=== PATIENT | female | born 1980 | race Caucasian/White ===

== ENCOUNTER 2021-07-09 14:29 | Emergency (ER) | payer MEDICAID ==
[~2021-07-09] VITALS: Ht 162.6 cm; Wt 86.2 kg
[2021-07-09 15:02] VITALS: BP_SYST 123
--- NOTE | 2021-07-09 15:02 | NUR ---
pt. triaged, arrived with concerns about probable seizure last night, pt. has hx. of seizures and takes keppra 500mg BID, last night went to bed and woke up this morning with sores to tongue and wearing clothes that she does not remeber putting on, bed was wet with urine from incontinence and pts last memory was feeling her eyes roll to the back of her head unsure of timing
--- NOTE | 2021-07-09 16:57 | NUR ---
ER in triage examining patient.
[2021-07-09 17:35] VITALS: BP_SYST 118
--- NOTE | 2021-07-09 17:36 | NUR ---
Patient given written and verbal discharge instructions and verbalizes understanding. ER MD discussed with patient the results and treatment provided. Patient in stable condition. ID arm band removed. Rx of NONE given. Patient educated on pain management and to follow up with PMD. Pain Scale 0/10. Opportunity for questions provided and answered. Medication side effect fact sheet provided. 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
== END 2021-07-09 17:36 | disposition home or self-care (01) ==
LOC: SED 14:29
DX: R56.9 Unspecified convulsions (principal)
CPT/HCPCS: 99281

== ENCOUNTER 2021-08-07 15:39 | Emergency (ER) | payer OTHER, MEDICAID, SELFPAY ==
[~2021-08-07] VITALS: Ht 162.6 cm; Wt 90.7 kg
[2021-08-07 15:40] VITALS: BP_SYST 117
--- NOTE | 2021-08-07 15:40 | NUR ---
Patient to ER bed 8 to gown for evaluation. Side rails up. Report given to
--- NOTE | 2021-08-07 15:41 | NUR ---
ER at bedside examining patient.
[2021-08-07] MEDS ORDERED: IBUP-1969 PO (15:52)
[2021-08-07] MEDS ORDERED: CYCL10TA24 PO (15:52)
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
[2021-08-07 16:53] VITALS: BP_SYST 117
--- NOTE | 2021-08-07 16:53 | NUR ---
Patient given written and verbal discharge instructions and verbalizes understanding. ER Dr. Arenas discussed with patient the results and treatment provided. Patient in stable condition. ID arm band removed. IV catheter removed intact and dressing applied, no active bleeding. Rx of Flexeril and ibuprofen given. Patient educated on pain management and to follow up with PMD. Pain Scale 3. Opportunity for questions provided and answered. Medication side effect fact sheet provided.
== END 2021-08-07 16:53 | disposition home or self-care (01) ==
LOC: SED 15:39
DX: S13.4XXA Sprain of ligaments of cervical spine, initial encounter (principal); Z79.899 Other long term (current) drug therapy; V49.59XA Passenger injured in collision with other motor vehicles in traffic accident, initial encounter; Y93.89 Activity, other specified; Y92.89 Other specified places as the place of occurrence of the external cause; Y99.8 Other external cause status
CPT/HCPCS: 99283